=== PATIENT | female | born 1980 | race Caucasian/White ===

== ENCOUNTER 2017-12-26 00:49 | Inpatient (IN) | payer OTHER ==
[~2017-12-26] VITALS: Ht 165.1 cm; Wt 85.0 kg
[~2017-12-26 00:49] MED LIST: IBUP-1222 PO
[2017-12-26] MEDS ORDERED: OXYTOCIN 30U/ 0.9% NaCL 500ML 500 ML IV ONE (00:56)
[2017-12-26] MEDS ORDERED: D5%-LACTATED RINGERS 1,000 ML IV SCH (00:56)
[2017-12-26] MEDS ORDERED: LACTATED RINGERS 1,000 ML IV SCH (00:56)
[2017-12-26] MEDS ORDERED: ONDANSETRON 2MG/ML, 2ML IVPush PRN (01:00)
[2017-12-26] MEDS ORDERED: FENTANYL PF 100 MCG/2ML IV PRN (01:00)
[2017-12-26] MEDS ORDERED: FENTANYL PF 100 MCG/2ML IVPush PRN (01:00)
[2017-12-26] MEDS ORDERED: SODIUM CITRATE/CITRIC ACID 30 ML UDC PO PRN (01:00)
[2017-12-26] MEDS ORDERED: CALCIUM CARBONATE 500 MG TAB.CHEW PO PRN ×2 (01:00→03:00)
[2017-12-26] MEDS ORDERED: TERBUTALINE 1 MG/ML, 1ML IVPush PRN (01:00)
[2017-12-26] MEDS ORDERED: METOCLOPRAMIDE 5 MG/ML, 2ML IVPush PRN (01:00)
[2017-12-26] MEDS ORDERED: FENTANYL PF 100 MCG/2ML ONE (01:20)
[2017-12-26 01:27] LABS: BASOPHILS # (AUTO) 0.08 x10^3/uL (0-0.1); BASOPHILS % (AUTO) 1 % (0-1); EOSINOPHILS # (AUTO) 0.12 x10^3/uL (0-0.4); EOSINOPHILS % (AUTO) 1 % (1-7); LYMPHOCYTES # (AUTO) 1.74 x10^3/uL (1-3.4); LYMPHOCYTES % (AUTO) 13 % (22-44); MD NO; MEAN CORPUSCULAR HEMOGLOBIN 30.1 pg (27.0-34.8); MEAN CORPUSCULAR HGB CONC 33.4 g/dL (32.4-35.8); MEAN CORPUSCULAR VOLUME 90.1 fL (80-100); MEAN PLATELET VOLUME 8.3 fL (7.4-10.4); MONOCYTES # (AUTO) 1.02 x10^3/uL (0.2-0.8); MONOCYTES % (AUTO) 7 % (2-9); NEUTROPHILS # (AUTO) 10.93 x10^3/uL (1.8-6.8); NEUTROPHILS % (AUTO) 79 % (42-75); PLATELET COUNT 274 x10^3/uL (130-400); RED BLOOD COUNT 4.17 x10^6/uL (3.82-5.3); RED CELL DISTRIBUTION WIDTH 14.4 % (9.6-15.2)
[2017-12-26] MEDS ORDERED: PENICILLIN GK 5,000,000 UNITS in SODIUM CHLORIDE 0.9% 100 ML IVPB ONE (01:30)
[2017-12-26] MEDS ORDERED: LIDOCAINE-MPF 1%, 5ML ONE (01:32)
[2017-12-26] MEDS ORDERED: OXYTOCIN 30U/ 0.9% NaCL 500ML 500 ML ONE (01:34)
[2017-12-26] MEDS ORDERED: OXYTOCIN 10 UNITS/ML, 1ML ONE (02:24)
[2017-12-26] MEDS ORDERED: OXYTOCIN 30U/ 0.9% NaCL 500ML 500 ML IV SCH (02:37)
[2017-12-26] MEDS ORDERED: MISOPROSTOL 200 MCG TABLET PR PRN (03:00)
[2017-12-26] MEDS ORDERED: MAGNESIUM HYDROXIDE 8%, 30ML UDC PO PRN (03:00)
[2017-12-26] MEDS ORDERED: RHOGAM FROM BLOOD BANK 1 NOTE EA IM/IV ONE (03:00)
[2017-12-26] MEDS ORDERED: ONDANSETRON 2MG/ML, 2ML IV PRN (03:00)
[2017-12-26] MEDS ORDERED: MEASLES,MUMPS&RUBELLA VACC/PF 0.5 ML SQ PRN (03:00)
[2017-12-26] MEDS ORDERED: OXYcodone/APAP 5/325MG TABLET PO PRN ×2 (03:00)
[2017-12-26] MEDS ORDERED: IBUPROFEN 600 MG TABLET PO PRN (03:00)
[2017-12-26] MEDS ORDERED: DIPH,PERTUSS(ACELL),TET VAC/PF NC IM-VACC PRN (03:00)
[2017-12-26] MEDS ORDERED: ACETAMINOPHEN 325 MG TABLET PO PRN ×2 (03:00)
[2017-12-26] MEDS ORDERED: OXYTOCIN 10 UNITS/ML, 1ML IM ONE (03:30)
[2017-12-26 04:10] VITALS: BP 99/60
[2017-12-26] MEDS ORDERED: PENICILLIN GK 2,500,000 UNITS in DEXTROSE 5% 100 ML IVPB SCH (05:30)
[2017-12-26 07:50] VITALS: BP 110/73
[2017-12-26] MEDS: PRENATAL VIT/IRON/FA 1 EACH TABLET PO SCH (09:00)
[2017-12-26] MEDS: DOCUSATE 100 MG CAPSULE PO PRN ×2 (09:08→21:02)
[2017-12-26 10:25] LABS: MEAN CORPUSCULAR HEMOGLOBIN 29.6 pg (27.0-34.8); MEAN CORPUSCULAR HGB CONC 33.3 g/dL (32.4-35.8); MEAN CORPUSCULAR VOLUME 88.8 fL (80-100); MEAN PLATELET VOLUME 8.4 fL (7.4-10.4); PLATELET COUNT 302 x10^3/uL (130-400); RED BLOOD COUNT 4.28 x10^6/uL (3.82-5.3); RED CELL DISTRIBUTION WIDTH 14.1 % (9.6-15.2)
[2017-12-26 11:08] LABS: BASOPHILS # (AUTO) 0.03 x10^3/uL (0-0.1); BASOPHILS % (AUTO) 0 % (0-1); EOSINOPHILS # (AUTO) 0.01 x10^3/uL (0-0.4); EOSINOPHILS % (AUTO) 0 % (1-7); LYMPHOCYTES # (AUTO) 1.34 x10^3/uL (1-3.4); LYMPHOCYTES % (AUTO) 7 % (22-44); MD SCAN; MONOCYTES # (AUTO) 0.99 x10^3/uL (0.2-0.8); MONOCYTES % (AUTO) 6 % (2-9); NEUTROPHILS % (AUTO) 87 % (42-75)
[2017-12-26 12:22] VITALS: BP 113/70
[2017-12-26 16:50] VITALS: BP 112/74
[2017-12-26 19:40] VITALS: BP 110/78
[2017-12-27] VITALS: BP 100/63
[2017-12-27 08:36] VITALS: BP 99/68
[2017-12-27] MEDS: DOCUSATE 100 MG CAPSULE PO PRN ×2 (08:36→19:55)
[2017-12-27] MEDS: PRENATAL VIT/IRON/FA 1 EACH TABLET PO SCH (08:36)
[2017-12-27 19:30] VITALS: BP 122/84
[2017-12-28 07:45] VITALS: BP 97/64
[2017-12-28] MEDS: PRENATAL VIT/IRON/FA 1 EACH TABLET PO SCH (08:30)
[2017-12-28] MEDS: DOCUSATE 100 MG CAPSULE PO PRN (08:30)
== END 2017-12-28 15:25 | disposition home or self-care (01) | DRG 775 ==
LOC: LDOP 00:49 → LDIP 00:59 → 2NW 03:24
PROVIDERS: ADMIT Obstetrics & Gynecology; ATTEND Obstetrics & Gynecology
PROC: 10E0XZZ Delivery of Products of Conception, External Approach (ICD-10-PCS; principal; 2017-12-26)
DX: O69.81X0 Labor and delivery complicated by cord around neck, without compression, not applicable or unspecified (principal); Z37.0 Single live birth; Z3A.38 38 weeks gestation of pregnancy
CPT/HCPCS: 36415; 82803; 85025; 86592; 86850; 86900; 87806; J2540; J3010; G0475; J2590